=== PATIENT | female | born 1960 | race Caucasian/White ===

== ENCOUNTER 2018-10-26 17:27 | Emergency (ER) | payer OTHER ==
[~2018-10-26] VITALS: Ht 152.4 cm; Wt 61.4 kg
[~2018-10-26 17:27] MED LIST: AZIT250T PO; CALC1TAB15 PO; CALC1TAB93 PO; FOLI1TAB15 PO; GABA-531 PO; GLIP5TAB11 PO; METF-961 PO; METH2.5T6 PO; NAPR-58 PO; OMEP-50 PO; PRED10 PO; PREG75 PO
[2018-10-26 17:59] LABS: GLUCOSE,POINT OF CARE 200 MG/DL (70-110)
[2018-10-26] MEDS ORDERED: ACETAMINOPHEN 160 MG/5 ML SUSPENSION UDCUP PO ONE (18:45)
[2018-10-26] MEDS ORDERED: LIDOCAINE 2% VISCOUS 15 ML SOLUTION UDCUP PO ONE (18:45)
[2018-10-26 20:33] VITALS: BP 118/81
== END 2018-10-26 20:39 | disposition home or self-care (01) ==
LOC: EMS 17:27
DX: R07.0 Pain in throat (principal); F31.9 Bipolar disorder, unspecified; E11.9 Type 2 diabetes mellitus without complications; K21.9 Gastro-esophageal reflux disease without esophagitis; Z79.84 Long term (current) use of oral hypoglycemic drugs; Z79.899 Other long term (current) drug therapy
CPT/HCPCS: 70360